=== PATIENT | male | born 1990 | race Caucasian/White ===

== ENCOUNTER 2019-01-15 18:56 | Emergency (ER) | payer SELFPAY ==
[~2019-01-15] VITALS: Ht 182.9 cm; Wt 79.5 kg
[2019-01-15] MEDS ORDERED: MORPHINE SULFATE 4 MG/ML SYRINGE IVP ONE (19:15)
[2019-01-15] MEDS ORDERED: NALOXONE HCL 1 MG/ML 2 ML SYG ONE (19:43)
[2019-01-15] MEDS ORDERED: FLUMAZENIL 0.1 MG/ML 5 ML VIAL IVP ONE (19:43)
[2019-01-15] MEDS ORDERED: MIDAZOLAM HCL 2 MG/2 ML VIAL IVP ONE ×2 (19:45→20:00)
[2019-01-15] MEDS ORDERED: FentaNYL CITRATE-PF 100 MCG/2 ML VIAL IVP ONE ×2 (19:45→20:00)
[2019-01-15 23:23] VITALS: BP 114/71
== END 2019-01-15 23:24 | disposition home or self-care (01) ==
LOC: EMS 18:59
DX: S52.272A Monteggia's fracture of left ulna, initial encounter for closed fracture (principal); F17.210 Nicotine dependence, cigarettes, uncomplicated; V00.131A Fall from skateboard, initial encounter; Y93.51 Activity, roller skating (inline) and skateboarding; Y92.89 Other specified places as the place of occurrence of the external cause; Y99.8 Other external cause status
CPT/HCPCS: 24620; 73080; 96374; 99152; 99285; J2250; J2270; J2310; J3010; J3490; 23650